=== PATIENT | female | born 1990 | race Caucasian/White ===

== ENCOUNTER 2017-07-27 02:18 | Emergency (ER) | payer SELFPAY ==
[2017-07-27] MEDS ORDERED: MIDAZOLAM 2 MG/2 ML VIAL IVP ONE (02:27)
--- NOTE | 2017-07-27 02:30 | EDPHY ---
H & P Time Seen by Provider: 07/27/17 02:23 HPI/ROS: HPI The patient presents brought in by ambulance after parents found her in her RV not acting appropriately. They were concerned that she was intoxicated. Fire department, who were initial responders noted that on scene she had episodes, approximately 2 in which she lost postural tone and became unconscious, however then quickly regained consciousness and was awake and alert. She said she has had about 5 shots of hard alcohol tonight. REVIEW OF SYSTEMS Constitutional: No fever, no chills. Eyes: No discharge. ENT: No sore throat. Cardiovascular: No chest pain, no palpitations. Respiratory: No cough, no shortness of breath. Gastrointestinal: No abdominal pain, no vomiting. Genitourinary: No hematuria. Musculoskeletal: No back pain. Skin: No rashes. Neurological: No headache. PMHx: Denies Soc Hx: Recently moved to [place], living in an RV, admits to alcohol use PHYSICAL General Appearance: Alert, arrives in 4 point restraints Eyes: Pupils equal and round no pallor or injection ENT, Mouth: Mucous membranes moist Respiratory: There are no retractions, lungs are clear to auscultation Cardiovascular: Regular rate and rhythm Gastrointestinal: Abdomen is soft and non-tender, no masses, bowel sounds normal Neurological: A&O, moves all extremities Skin: Warm and dry, no rashes Musculoskeletal: Neck is supple non tender Extremities: symmetrical, full range of motion Psychiatric: Patient is oriented X 3, there is some agitation Source: Patient, EMS Constitutional: Initial Vital Signs Temperature (C) 36.7 C 07/27/17 02:40 Heart Rate 88 07/27/17 02:40 Respiratory Rate 20 07/27/17 02:40 Blood Pressure 97/69 L 07/27/17 02:40 O2 Sat (%) 96 07/27/17 02:40 Allergies/Adverse Reactions: No Known Allergies Allergy (Unverified 07/27/17 02:39) Medical Decision Making Differential Diagnosis: 27-year-old female with no known past medical history presents brought in by ambulance after parents found her not acting herself. On exam, she has normal vital signs, she is somewhat agitated, she appears intoxicated. There were some episodes of ALOC which occurred and were witnessed by fire department. These do not sound like seizures, given no postictal period, they do not sound like vasovagal episodes or other sort of syncope given lack of prodrome. After several hours of observation, the patient is now more awake and alert. She admits to drinking alcohol last night and I feel this is what is slowly responsible for her symptoms. She may have nonepileptic seizures or some other entity causing these pauses in consciousness, however I am not concerned for any serious or sinister etiology at this time. Her parents will come to pick her up and she will be discharged. She is been able to walk with a steady gait and has no complaints currently. - Data Points Medications Given: Discontinued Medications Midazolam HCl (Versed) 1 mg IVP EDNOW ONE Stop: 07/27/17 02:28 Last Admin: 07/27/17 02:53 Dose: 1 mg Ondansetron HCl (Zofran) 4 mg IVP EDNOW ONE Stop: 07/27/17 02:50 Last Admin: 07/27/17 02:53 Dose: 4 mg Departure - Departure Disposition: Home, Routine, Self-Care Clinical Impression: Alcoholic intoxication, Altered mental status Condition: Good Instructions: Alcohol Intoxication (ED) Additional Instructions: Please return to the emergency department if your worse in any way. Otherwise you [facility] to arrange for a follow-up appointment. Referrals: [facility],. [Clinic] - As per Instructions
[2017-07-27 02:45] VITALS: TEMP 98.1
[2017-07-27] MEDS ORDERED: ONDANSETRON 4 MG/2 ML VIAL ONE (02:46)
[2017-07-27] MEDS ORDERED: ONDANSETRON 4 MG/2 ML VIAL IVP ONE (02:49)
[2017-07-27 07:18] VITALS: BP 94/44; PULSE 90; RESP 16; O2SAT 94
== END 2017-07-27 07:16 | disposition home or self-care (01) ==
LOC: EDBD 02:18
DX: F10.129 Alcohol abuse with intoxication, unspecified (principal); R41.82 Altered mental status, unspecified
CPT/HCPCS: 96374; J2250; J2405